=== PATIENT | female | born 1995 | race African-American/Black ===

== ENCOUNTER → 2016-07-01 | Outpatient (CLI) | payer OTHER ==
[2016-07-01 13:50] LABS: BASO % 0.4 % (0.0-1.0); EOS # 0.1 K/mm3 (0.0-0.50); EOS % 1.3 % (0.0-3.0); LARGE UNSTAINED CELL # 0.1 K/mm3 (0.0-0.4); LYMPH # 2.4 K/mm3 (1.5-6.5); LYMPH % 25.9 % (24.0-44.0); MEAN CORPUSCULAR HEMOGLOBIN 29.8 pg (27.0-33.0); MEAN CORPUSCULAR HGB CONC 34.3 g/dl (32.0-36.5); MEAN CORPUSCULAR VOLUME 86.8 fl (80.0-96.0); MONO # 0.4 K/mm3 (0.0-0.8); MONO % 4.5 % (0.0-5.0); NEUTROPHILS # 5.9 K/mm3 (1.8-7.7); NEUTROPHILS % 66.9 % (36.0-66.0); PLATELET COUNT, AUTOMATED 292 k/mm3 (150-450); RED CELL DISTRIBUTION WIDTH 12.5 % (11.5-14.5); WHITE BLOOD COUNT 8.8 K/mm3 (4.0-10.0)
[2016-07-01 14:05] LABS: HIV SCRN NEGATIVE (NEGATIVE); HIV SCRN1 NEGATIVE (NEGATIVE)
[2016-07-01 14:06] LABS: CONTROL LINE INT CTR LINE PRESENT
[2016-07-02 09:49] LABS: HBsAg Prenatal NEGATIVE (NEGATIVE)
== END ==
LOC: M SMT 10:57
PROVIDERS: ATTEND Advanced Practice Midwife
DX: Z34.81 Encounter for supervision of other normal pregnancy, first trimester (principal)

== ENCOUNTER 2016-07-25 15:23 | Emergency (ER) | payer OTHER ==
[~2016-07-25] VITALS: Ht 165.1 cm; Wt 97.5 kg
[2016-07-25] MEDS ORDERED: PRENATAL PO (15:36)
[2016-07-25] MEDS ORDERED: METOCLOPRAMIDE INJ 10MG/2ML VIAL (J2765) IV ONE (16:00)
[2016-07-25] MEDS ORDERED: NS 1,000 ML IV ONE ×2 (16:00)
[2016-07-25] MEDS ORDERED: ZOFR4TAB3 PO (17:24)
[2016-07-25 18:23] VITALS: BP 124/74
== END 2016-07-25 18:28 | disposition home or self-care (01) ==
LOC: M ED 16:06
DX: O26.892 Other specified pregnancy related conditions, second trimester (principal); O21.9 Vomiting of pregnancy, unspecified; Z3A.16 16 weeks gestation of pregnancy
CPT/HCPCS: 96361; 96374; 99283; J2765

== ENCOUNTER → 2016-08-18 | Outpatient (CLI) | payer OTHER ==
[~2016-08-18] MED LIST: PRENATAL PO; ZOFR4TAB3 PO
--- NOTE | 2016-08-19 04:14 | REP ---
Clinical: Anatomical evaluation. Comparison: None . Findings: Examination demonstrates a single live intrauterine in variable presentation. motion is identified by technologist. Placenta is noted posteriorly and grade 0 without evidence for placenta previa or abruption. Amniotic fluid volume is normal. Cervix measures 4.6 cm in length and appears closed. No evidence for nuchal cord. Gestational age by current measurements 20 weeks 6 days with JARRED 12/30/2016 . FHR equals 147 beats per minute. BPD 4.9 cm 20 weeks 6 days HC 18.5 cm 20 weeks 6 days AC 16.8 cm 21 weeks 6 days FL 3.6 cm 21 weeks 2 days HL 3.47 21 weeks 3 days HC/AC ratio 1.10 Estimated weight 425 grams ( 65th percentile). Anatomical assessment demonstrates normal structures including cranium, choroid plexus, cavum, cerebellum/posterior fossa, lungs, stomach, cord insertion/three-vessel cord, bladder, spine, and upper extremities. Limited evaluation of the facial features, heart/ventricular outflow tracts, transverse three-vessel cord view, and lower extremities. Mild bilateral renal hydronephrosis (right renal pelvis 4.2 mm; left renal pelvis 6.1 mm). Impression: 1. Single live intrauterine in variable presentation demonstrating appropriate estimated weight. 2. Anatomical limitations as described above. Signed by Hola Calhoun MD 08/19/2016 04:05 A
== END ==
LOC: M SMT 12:48
PROVIDERS: ATTEND Advanced Practice Midwife
DX: Z34.82 Encounter for supervision of other normal pregnancy, second trimester (principal)

== ENCOUNTER → 2016-09-19 | Outpatient (CLI) | payer OTHER ==
--- NOTE | 2016-09-19 17:00 | REP ---
Clinical: Anatomical evaluation. Comparison: 08/18/2016 . Findings: Examination demonstrates a single live intrauterine in cephalic presentation. motion is identified by technologist. Placenta is noted posteriorly and grade zero without evidence for placenta previa or abruption. Amniotic fluid volume is normal. Cervix measures 4.0 cm in length and appears closed. No evidence for nuchal cord. Gestational age by first US 25 weeks 3 days with JARRED 12/30/2016 . Gestational age by current measurements 25 weeks 0 days with JARRED 01/02/2017 . FHR equals 141 beats per minute. Estimated weight 836 grams ( 48th percentile). Anatomical assessment demonstrates normal structures including cranium, choroid plexus, cavum, cerebellum/posterior fossa, facial features, lungs, four-chamber heart/ventricular outflow tracts, diaphragm, stomach, cord insertion/three-vessel cord, bladder, spine, and extremities. Continued evidence for mild hydronephrosis (left greater than right). Impression: Single live intrauterine demonstrating appropriate interval growth. With the exception of mild hydronephrosis, the anatomical assessment is complete and normal. The kidneys are otherwise grossly normal in appearance without obvious cystic changes or mass lesion. Consider ultrasound of the urinary tract system upon delivery. Signed by Hola Calhoun MD 09/19/2016 02:31 P
== END ==
LOC: M SMT 13:17
PROVIDERS: ATTEND Advanced Practice Midwife
DX: Z34.80 Encounter for supervision of other normal pregnancy, unspecified trimester (principal)

== ENCOUNTER → 2016-09-25 | Outpatient (CLI) | payer OTHER ==
[2016-09-25 13:55] LABS: BASO % 0.3 % (0.0-1.0); EOS # 0.1 K/mm3 (0.0-0.50); EOS % 1.8 % (0.0-3.0); LARGE UNSTAINED CELL % 0.5 % (0.0-4.0); LYMPH # 1.4 K/mm3 (1.5-6.5); LYMPH % 16.9 % (24.0-44.0); MEAN CORPUSCULAR HEMOGLOBIN 29.1 pg (27.0-33.0); MEAN CORPUSCULAR HGB CONC 33.4 g/dl (32.0-36.5); MONO # 0.3 K/mm3 (0.0-0.8); NEUTROPHILS # 6.2 K/mm3 (1.8-7.7); NEUTROPHILS % 76.5 % (36.0-66.0); PLATELET COUNT, AUTOMATED 295 k/mm3 (150-450); RED CELL DISTRIBUTION WIDTH 13.1 % (11.5-14.5); WHITE BLOOD COUNT 8.1 K/mm3 (4.0-10.0)
== END ==
LOC: M SMT 10:07
PROVIDERS: ATTEND Advanced Practice Midwife
DX: Z34.82 Encounter for supervision of other normal pregnancy, second trimester (principal)

== ENCOUNTER → 2016-12-01 | Outpatient (CLI) | payer OTHER ==
[~2016-12-01] MED LIST changes: +ACET50TA PO; +COLA100C5 PO; +GLYB25TA PO; +IBUP-1114 PO; +MOM30SS PO; +PRENTAB9 PO
--- NOTE | 2016-12-02 04:25 | REP ---
Clinical: Growth evaluation. History of gestational diabetes. Comparison: 09/19/2016. Findings: Examination demonstrates a single live intrauterine in cephalic presentation. motion is identified by technologist. Placenta is noted posteriorly and grade one without evidence for placenta previa or abruption. Amniotic fluid volume is normal. No evidence for nuchal cord. Gestational age by first US 35 weeks 6 days with JARRED 12/30/2016. Gestational age by current measurements 35 weeks 3 days with JARRED 01/02/2017. FHR equals 131 beats per minute. BPD 8.6 cm 34 weeks 3 days HC 30.5 cm 33 weeks 6 days AC 35.0 cm 38 weeks 6 days FL 7.1 cm 36 weeks 2 days HL 6.4 cm 37 weeks 0 days HC/AC ratio 0.87 Estimated weight 3141 grams ( 73rd percentile). Amniotic fluid index equals 13.7 cm (7.7 - 24.9). Umbilical cord SD ratio equals 2.72 (see 2.00 - 3.00). Bilateral hydronephrosis appreciated. Right renal pelvis measures 6.3 mm diameter; left renal pelvis measures 10 mm diameter. Impression: 1. Single live advanced gestation in cephalic presentation demonstrating appropriate interval growth. 2. Bilateral hydronephrosis may warrant renal ultrasound evaluation. 3. Amniotic fluid volume within normal limits. Signed by Hola Calhoun MD 12/02/2016 04:16 A
== END ==
LOC: M SMT 13:02
PROVIDERS: ATTEND Obstetrics & Gynecology
DX: Z34.80 Encounter for supervision of other normal pregnancy, unspecified trimester (principal)

== ENCOUNTER → 2016-12-11 | Outpatient (REF) | payer OTHER | LOC: M LAB REF 17:28 | PROVIDERS: ATTEND Advanced Practice Midwife | DX: Z34.83 Encounter for supervision of other normal pregnancy, third trimester (principal) ==

== ENCOUNTER → 2016-12-24 | Outpatient (CLI) | payer OTHER ==
--- NOTE | 2016-12-24 15:26 | REP ---
OB ULTRASOUND: Real-time sonographic evaluation of the gravid uterus performed. There is a single living intrauterine gestation with an estimated gestational age of 39 weeks 1 day EDC 12/30/2016. Today's measurements indicate appropriate growth. BPD 91 mm = 36 weeks 5 days, 15th percentile HC 321 mm = 36 weeks 2 days, less than 5th percentile AC 38 mm = 42 weeks 0 days, 91st percentile Femur length 73 mm = 37 weeks 1 day, 20th percentile HC/AC ratio 0.85 is below the normal range of 0.89 to 1.08. Estimated weight 3841 grams, 70th percentile. heart rate 124 beats per minute. Amniotic fluid within normal limits, ADA 15.1 within normal range of 7.2 to 22.4. S/D ratio of 2.43 within normal range, RI 0.59. stomach, kidneys, and bladder are visualized and are grossly unremarkable. The renal pelves are slightly prominent in appearance with AP diameters 6 and 9 mm, but not dilated above 10 mm, however. position is vertex. Placenta is posterior with no previa. IMPRESSION: Appropriate growth as above. Signed by Artur Tidwell MD 12/24/2016 05:25 P
== END ==
LOC: M SMT 14:02
PROVIDERS: ATTEND Advanced Practice Midwife
DX: O24.415 Gestational diabetes mellitus in pregnancy, controlled by oral hypoglycemic drugs (principal)

== ENCOUNTER 2016-12-25 23:10 | Inpatient (IN) | payer OTHER ==
[~2016-12-25] VITALS: Ht 165.1 cm; Wt 120.0 kg
[~2016-12-25 23:10] MED LIST changes: -ACET50TA PO; -COLA100C5 PO; -GLYB25TA PO; -IBUP-1114 PO; -MOM30SS PO; -PRENTAB9 PO
[2016-12-25 23:22] VITALS: BP 128/78
[2016-12-26] VITALS (52 sets, daily range): BP systolic 112–174; BP diastolic 64–104
[2016-12-26 01:09] LABS: MEAN CORPUSCULAR HEMOGLOBIN 28.9 pg (27.0-33.0); MEAN CORPUSCULAR HGB CONC 34.5 g/dl (32.0-36.5); MEAN CORPUSCULAR VOLUME 83.9 fl (80.0-96.0); RED CELL DISTRIBUTION WIDTH 14.5 % (11.5-14.5); WHITE BLOOD COUNT 9.8 K/mm3 (4.0-10.0)
[2016-12-26] MEDS ORDERED: EPIDURAL COMMENT XX SCH (03:22)
[2016-12-26] MEDS ORDERED: ONDANSETRON 4MG/2ML VIAL (J2405) IV PRN (03:22)
[2016-12-26] MEDS ORDERED: NALOXONE INJ 0.4 MG/1 ML VIAL (J2310) IV PRN (03:22)
[2016-12-26] MEDS ORDERED: EPIDURAL/PCA KEYS XX PRN (03:22)
[2016-12-26] MEDS ORDERED: FENTANYL/ROPIVACAINE/NACL BAG 200 ML EPIDURAL SCH (03:22)
[2016-12-26] MEDS ORDERED: diphenhydrAMINE INJ 50MG/ML VIAL (J1200) IV PRN (03:22)
[2016-12-26] MEDS ORDERED: REFRIGERATOR IV KEYS XX PRN (03:22)
[2016-12-26] MEDS ORDERED: LACTATED RINGER'S 1000 ML IV PRN (03:22)
[2016-12-26] MEDS ORDERED: ePHEDrine SULFATE 25 MG/5 ML(5MG/ML) SYRINGE IV PRN (03:22)
[2016-12-26] MEDS ORDERED: FENTANYL 2MCG/ML ROPIVACAINE 0.2% IN 0.9% NACL 200ML IVBAG As Ordered ONE (03:23)
[2016-12-26] MEDS ORDERED: OXYTOCIN DRIP 30 UNITS in APPROPRIATE DILUENT 1 EA IV SCH ×2 (04:45→15:10)
[2016-12-26] MEDS ORDERED: GLYB25TA PO (04:51)
--- NOTE | 2016-12-26 10:51 | HPE ---
DATE OF ADMISSION: 12/25/2016 HISTORY: 21-year-old (G) 2, para (P) 0-0-1-0 female at 38-3/7 weeks gestation by 6-week ultrasound, estimated date of confinement (EDC) of 01/05/2017, presents with spontaneous loss of fluid per vagina at 10 p.m. on the day of admission. The contractions started to increase. She continued leaking fluid on the way to the hospital. COURSE: The patient initiated care at 13 weeks gestation on 06/30/2016. Her blood pressure was 132/88. Weight was 250 pounds. course was significant for gestational diabetes due to poor glucose control. She was started on glyburide at 28 weeks gestation. Ultrasound for growth the day prior to admission was approximately 3800 grams, over 78th percentile for gestational age. MEDICAL HISTORY: Noncontributory. SURGICAL HISTORY: None. ALLERGIES: None. SOCIAL HISTORY: The patient is . She denies cigarettes, alcohol or drug use. FAMILY HISTORY: Noncontributory. PHYSICAL EXAMINATION: VITAL SIGNS: Blood pressure 128/76, weight 262 pounds. She is in no apparent distress. HEAD/NECK: Examination normal. LUNGS: Clear. HEART: Regular rate. ABDOMEN: Nontender. Gravid. heart tones category 1. Contractions irregular. STERILE VAGINAL EXAMINATION: Grossly ruptured, clear fluid noted, Nitrazine positive, cervix 3 cm, 100% effaced, -2 station, vertex. EXTREMITIES: Nontender. LABORATORIES: Blood type O positive. Rubella immune. RPR nonreactive. Diabetes screen 247. Group B Streptococcus (GBS) negative 12/11/2016. ASSESSMENT: 21-year-old (G) 2, para (P) 0-0-1-0 female at 38-4/7 weeks gestation presents with spontaneous rupture of membranes in early labor. Patient is admitted on 12/25/2016.
[2016-12-26] MEDS ORDERED: ANUSOL HC CREAM 30GM TOP PRN (15:15)
[2016-12-26] MEDS ORDERED: DOCUSATE SODIUM 100 MG CAP PO PRN (15:15)
[2016-12-26] MEDS ORDERED: ACETAMINOPHEN 500 MG TAB PO PRN (15:15)
[2016-12-26] MEDS ORDERED: DIBUCAINE 1% OINTMENT 30GM TOP PRN (15:15)
[2016-12-26] MEDS ORDERED: RHOGAM 300 MCG (1500 IU) INJ (J2790) IM SCH (15:15)
[2016-12-26] MEDS ORDERED: MEASLES,MUMPS,RUBELLA VACCINE INJ (MMR-II) (90707) SC SCH (15:15)
[2016-12-26] MEDS ORDERED: METHYLERGONOVINE MALEATE 0.2 MG TAB PO PRN (15:15)
[2016-12-26] MEDS ORDERED: MOM 30ML SUSPENSION UDC PO PRN (15:15)
[2016-12-26] MEDS: IBUPROFEN 800 MG TAB PO PRN (17:30)
--- NOTE | 2016-12-26 23:34 | DN ---
DATE OF DELIVERY: 12/26/2016 TIME OF : 1441 GENDER: Male. SCORES: 8 and 9. WEIGHT: 8 pounds 10 ounces or 3982 grams. LACERATIONS: First-degree midline laceration. ESTIMATED BLOOD LOSS: 300 mL. ANESTHESIA: Epidural. COUNTS: Five laparotomy sponges accounted for prior to and after delivery and one sharp removed from the delivery field. DELIVERY NOTE: On 12/26/2016, at 1441, Mrs. Romano, a 21-year-old 2, now para 1 had a spontaneous vaginal delivery of a liveborn male , scores were 8 and 9. Weight was 8 pounds 10 ounces or 3982 grams. Head was delivered left occiput anterior (MATTHEW) followed by delivery of right anterior shoulder, left posterior shoulder and corpus. Infant was handed to mother with a good cry. Cord was clamped times two, was cut by the father of the baby under my direction. Cord blood was obtained. Placenta was then drained and delivered grossly intact. A premixed bag of 500 mL of normal saline with 30 units of Pitocin was bolused along with uterine massage until the uterus was firm. Upon inspection, there was a first-degree midline laceration, which was repaired with 3-0 Vicryl Rapide. On re-inspection, cervix, vagina, and perineum were grossly intact and hemostatic. Mother and baby recovered in stable condition. The couple has decided to name their son Renzo Noel.
[2016-12-27] MEDS: IBUPROFEN 800 MG TAB PO PRN ×2 (02:24→18:09)
[2016-12-27 05:45] VITALS: BP 153/97
[2016-12-27 06:00] VITALS: BP 148/90
[2016-12-27] MEDS: PRENATAL VITAMINS CHEWABLE TABLET PO SCH (08:06)
[2016-12-27] MEDS ORDERED: ADACEL/BOOSTRIX VACCINE (DIPHTH/PERTUSS/ACELL/TETANUS)0.5ML SYR (90715) IM ONE (09:00)
[2016-12-27 15:42] VITALS: BP 118/68
[2016-12-27 18:18] VITALS: BP 142/82
[2016-12-28 05:41] VITALS: BP 147/90
[2016-12-28] MEDS: PRENATAL VITAMINS CHEWABLE TABLET PO SCH (07:56)
[2016-12-28] MEDS ORDERED: PRENTAB9 PO (08:40)
[2016-12-28] MEDS ORDERED: IBUP-1114 PO (08:43)
[2016-12-28] MEDS ORDERED: MOM30SS PO (08:43)
[2016-12-28] MEDS ORDERED: COLA100C5 PO (08:43)
[2016-12-28] MEDS ORDERED: ACET50TA PO (08:43)
== END 2016-12-28 13:50 | disposition home or self-care (01) | DRG 775 ==
LOC: M LDO 23:10 → M LDI 23:31 → M OBS 12-26 21:26
PROVIDERS: ADMIT Specialist; ATTEND Specialist
PROC: 10E0XZZ Delivery of Products of Conception, External Approach (ICD-10-PCS; principal; 2016-12-26)
PROC: 0HQ9XZZ Repair Perineum Skin, External Approach (ICD-10-PCS; 2016-12-26)
DX: O24.425 Gestational diabetes mellitus in childbirth, controlled by oral hypoglycemic drugs (principal); Z37.0 Single live birth; Z3A.38 38 weeks gestation of pregnancy; O70.0 First degree perineal laceration during delivery; Z79.899 Other long term (current) drug therapy

== ENCOUNTER → 2017-01-29 | Outpatient (REF) | payer OTHER ==
[~2017-01-29] MED LIST changes: +ACET50TA PO; +COLA100C5 PO; +GLYB25TA PO; +IBUP-1114 PO; +MOM30SS PO; +PRENTAB9 PO
== END ==
LOC: M SFHCLERA 14:36
PROVIDERS: ATTEND Nurse Practitioner Family
DX: R39.15 Urgency of urination (principal)

== ENCOUNTER → 2017-02-17 | Outpatient (CLI) | payer OTHER ==
[2017-02-17 08:47] LABS: MEAN CORPUSCULAR HEMOGLOBIN 27.4 pg (27.0-33.0); MEAN CORPUSCULAR HGB CONC 33.2 g/dl (32.0-36.5); MEAN CORPUSCULAR VOLUME 82.4 fl (80.0-96.0); RED CELL DISTRIBUTION WIDTH 13.2 % (11.5-14.5); WHITE BLOOD COUNT 9.1 10^3/uL (4.0-10.0)
== END ==
LOC: M LAB 08:01
PROVIDERS: ATTEND Obstetrics & Gynecology
DX: Z86.32 Personal history of gestational diabetes (principal)

== ENCOUNTER → 2017-04-22 | Outpatient (REF) | payer OTHER ==
[2017-04-22 16:32] LABS: MEAN CORPUSCULAR HGB CONC 32.7 g/dl (32.0-36.5); MEAN CORPUSCULAR VOLUME 82.5 fl (80.0-96.0); PLATELET COUNT, AUTOMATED 384 10^3/uL (150-450); RED CELL DISTRIBUTION WIDTH 12.9 % (11.5-14.5); WHITE BLOOD COUNT 8.9 10^3/uL (4.0-10.0)
[2017-04-22 17:05] LABS: ALBUMIN 4.1 GM/DL (3.2-5.2); ALBUMIN/GLOBULIN RATIO 0.98 (1.00-1.93); ALKALINE PHOSPHATASE 90 U/L (45-117); ALT/SGPT 42 U/L (12-78); ANION GAP 6 MEQ/L (8-16); AST/SGOT 18 U/L (7-37); BILIRUBIN,TOTAL 0.4 MG/DL (0.2-1.0); BLOOD UREA NITROGEN 14 MG/DL (7-18); CALCIUM LEVEL 8.8 MG/DL (8.5-10.1); CARBON DIOXIDE LEVEL 30 MEQ/L (21-32); CHLORIDE LEVEL 102 MEQ/L (98-107); CHOLESTEROL LEVEL 185 MG/DL (<200); CREATININE FOR GFR 0.73 MG/DL (0.55-1.02); FERRITIN 21 NG/ML (8-252); GLOMERULAR FILTRATION RATE > 60.0 (>60); GLUCOSE, FASTING 166 MG/DL (70-105); POTASSIUM SERUM 4.9 MEQ/L (3.5-5.1); SODIUM LEVEL 138 MEQ/L (136-145); TOTAL IRON BINDING CAPACITY 387 UG/DL (250-450); TOTAL PROTEIN 8.3 GM/DL (6.4-8.2); TRIGLYCERIDES LEVEL 201 MG/DL (<150)
== END ==
LOC: M SFHCLERA 10:03
PROVIDERS: ATTEND Family Medicine
DX: L65.0 Telogen effluvium (principal); E66.01 Morbid (severe) obesity due to excess calories; Z86.32 Personal history of gestational diabetes

== ENCOUNTER → 2017-05-20 | Outpatient (REF) | payer OTHER ==
[2017-05-21 12:26] LABS: ESTIMATED AVERAGE GLUCOSE 154 MG/DL (60-110)
[2017-05-21 13:14] LABS: MAU/CREAT RATIO 362.7 MCG/MG (0.0-30.0)
== END ==
LOC: M SFHCLERA 16:12
DX: R73.09 Other abnormal glucose (principal)
CPT/HCPCS: 83036